=== PATIENT | male | born 1985 | race Caucasian/White ===

== ENCOUNTER 2018-09-29 17:54 | Emergency (ER) | payer SELFPAY ==
[~2018-09-29] VITALS: Ht 182.9 cm; Wt 80.0 kg
--- NOTE | 2018-09-29 18:01 | NUR ---
LATE ENTRY D/T PATIENT CARE: PT BIBA FOR OVERDOSE ON OXYCODONE. REPORT TAKEN FROM EMS. PT TOOK 30 MG OXYCODONE, STATES TIME OF INGESTION WAS IN BETWEEN [id number]. PT STATES THAT HE BELIEVES OXYCODONE INGESTED WAS IMMEDIATE RELEASE. PER EMS, PT'S FRIENDS CALLED AFTER PT COLLAPSED. PT HAD 4 RESPS / MIN ON ARRIVAL, SPO2 50%. PT WAS GIVEN 0.4 MG NARCAN, NPA PLACED AND PT VENTILATED WITH BVM PRIOR TO ARRIVAL. FSBS 120 BUTTON RIVETER PER EMS. ON ARRIVAL TO ED, PT IS A&OX4, RESPS EVEN AND UNLABORED AT RATE OF 15 PER MIN. PUPILS 3 MM, EQUAL, ROUND AND REACTIVE. PT DENIES SI OR INTENT TO HARM SELF, IS APOLOGETIC. STATES THIS WAS HIS FIRST TIME TAKING OXYCODONE, INTENT WAS TO GET HIGH. CALL LIGHT IN REACH, BED LOCKED AND IN LOWEST POSITION.
[2018-09-29 18:30] VITALS: BP 122/81
--- NOTE | 2018-09-29 18:40 | NUR ---
LATE ENTRY D/T PATIENT CARE: PT REQUESTING TO LEAVE BECAUSE HIS RIDE IS HERE AND CANNOT WAIT. PT EDUCATED REGARDING POC TO OBSERVE FOR ONE FULL HOUR, PT REFUSES TO STAY. MD ZACARIAS INFORMED. PT EDUCATED REGARDING RISK OF LEAVING PRIOR TO ONE HOUR OBS PERIOD. PT SIGNED AMA FORM. PT IS A&OX4, RESPS EVEN AND UNLABORED AT RATE 12/MIN. PUPILS 3MM, EQUAL, ROUND AND REACTIVE. PIV DC'D WITH TIP INTACT, BY PATIENT. DRESSING APPLIED BY RN. PT AMB TO DC DESK WITH STEADY GAIT. NADN AT DC.
== END 2018-09-29 18:58 | disposition left against medical advice (07) ==
LOC: ED 18:10
DX: T40.2X1A Poisoning by other opioids, accidental (unintentional), initial encounter (principal); Y92.9 Unspecified place or not applicable
CPT/HCPCS: 93005; 99283

== ENCOUNTER 2020-04-26 23:46 | Emergency (ER) | payer SELFPAY ==
[~2020-04-26] VITALS: Ht 182.9 cm; Wt 84.0 kg
--- NOTE | 2020-04-26 23:57 | NUR ---
pt kapil robert to room 1, calm and cooperative. placed in [facility], on cr monitor, and MD to see pt. states he has had some thoughts of Suicide, but no plan, and has been drinking a lot.
[2020-04-27] MEDS ORDERED: SODIUM CHLORIDE 0.9% 1,000ML IVBOLUS ONE
[2020-04-27] MEDS ORDERED: ONDANSETRON 2MG/ML, 2ML IVPush ONE
[2020-04-27 00:09] LABS: BASOPHILS % (AUTO) 1 % (0-1); EOSINOPHILS % (AUTO) 1 % (1-7); LYMPHOCYTES % (AUTO) 36 % (22-44); MEAN CORPUSCULAR HEMOGLOBIN 32.5 pg (27.5-34.5); MEAN CORPUSCULAR HGB CONC 34.3 g/dL (33.2-36.2); MEAN PLATELET VOLUME 8.6 fL (7.4-10.4); MONOCYTES % (AUTO) 8 % (2-9); NEUTROPHILS % (AUTO) 55 % (42-75); PLATELET COUNT 153 x10^3/uL (130-400); RED BLOOD COUNT 5.13 x10^6/uL (4.38-5.82); RED CELL DISTRIBUTION WIDTH 13.1 % (9.4-14.8)
[2020-04-27 00:22] LABS: ALANINE AMINOTRANSFERASE 101 U/L (12-78); ALBUMIN 3.7 g/dL (3.4-5.0); ANION GAP 11 mmol/L (5-15); CALCIUM 7.8 mg/dL (8.5-10.1); CHLORIDE 106 mmol/L (98-107); CREATININE 1.04 mg/dL (0.7-1.3)
--- NOTE | 2020-04-27 00:22 | NUR ---
pt calm. iv flushed with 10ml NS and flushed easy and no swelling or pain noted. iv ns 1000ml started to run over 1 hour. pt tolerating well. ekg done as well, and lab drawn.
[2020-04-27 00:24] LABS: ALKALINE PHOSPHATASE 75 U/L (45-117); BILIRUBIN,TOTAL 0.5 mg/dL (0.2-1.0)
[2020-04-27 00:28] LABS: MD NO
[2020-04-27] MEDS ORDERED: ONDANSETRON 2MG/ML, 2ML ONE (00:45)
--- NOTE | 2020-04-27 00:57 | NUR ---
pt wrestless, critical value back on etoh of 0.458, and md notified. pt receiving bolus ivf NS 1 liter, and zofran given IVP. calm but restless.
--- NOTE | 2020-04-27 01:12 | NUR ---
pt restless. pulled iv out of arm, and states he hurts all over. notified.
[2020-04-27 01:28] VITALS: BP 132/76
--- NOTE | 2020-04-27 01:29 | NUR ---
new iv placed left forearm. 20g, no issue, flushed easy, and 1 liter NS placed to run over 1 hour.
[2020-04-27] MEDS ORDERED: DIPHENHYDRAMINE 50 MG/ML, 1ML ONE (01:34)
--- NOTE | 2020-04-27 01:37 | NUR ---
benadryl given to help pt calm and rest. high level etoh, no benzos.
[2020-04-27] MEDS ORDERED: DIPHENHYDRAMINE 50 MG/ML, 1ML IVPush ONE (02:00)
--- NOTE | 2020-04-27 02:33 | NUR ---
Pt was found wandering around halls with blood dripping from IV site. Patient ambulatory and stable on feet.
--- NOTE | 2020-04-27 02:43 | NUR ---
unable to obtain discharge vitals, patient dressed and walking out the door before automatic typewriter inspector could obtain
== END 2020-04-27 02:44 | disposition home or self-care (01) ==
LOC: ED 04-27 00:25
DX: G31.2 Degeneration of nervous system due to alcohol (principal); F10.120 Alcohol abuse with intoxication, uncomplicated; F41.9 Anxiety disorder, unspecified; Z72.9 Problem related to lifestyle, unspecified; Y90.9 Presence of alcohol in blood, level not specified
CPT/HCPCS: 36415; 80053; 80320; 83735; 85025; 93005; 96361; 96374; 96375; 99284; J1200; J2405; J7030; G0480

== ENCOUNTER 2020-09-14 09:58 | Inpatient (IN) | payer MEDICAID, OTHER ==
[~2020-09-14] VITALS: Ht 182.9 cm; Wt 82.0 kg
--- NOTE | 2020-09-14 10:12 | NUR ---
PT BIB [facility]. PER REPORT, BROTHER WENT TO PT'S HOUSE FOR A WELFARE CHECK SINCE HE HAD NOT HEARD FROM HIM IN A WEEK. PT OPENED THE DOOR AND THEN STIFFENED UP AND COLLAPSED BACKWARD, HITTING HEAD. BROTHER STATED THAT PT DID NOT LOSE CONSCIOUSNESS AND THAT HE IMMEDIATLY TRIED TO STAND UP. BROTHER STATED THAT PT HAS HAD ALCOHOL AND PILL POPPING ISSUES IN THE PAST, BUT DID NOT SEE ANY ALCOHOL OR PILLS IN THE HOUSE. PT STATED THAT HE WAS EXPOSED TO SOMEONE WITH COVID LAST WEEK AND HAS BEEN VOMITING AND FEELING LETHARGIC FOR 1 WEEK. PT DENIES ANY RECENT PILL USE, EXCEPT A VALIUM 2 DAYS AGO AND THE WENT ON A DRINKING BINGE 4 DAYS AGO. PT DENIES ANY FEVER, COUGH, SOB, HEAD OR NECK PAIN.
[2020-09-14] MEDS ORDERED: ONDANSETRON 2MG/ML, 2ML ONE (10:51)
[2020-09-14] MEDS ORDERED: SODIUM CHLORIDE FLUSH 10ML SYR IVF ONE (11:00)
[2020-09-14] MEDS ORDERED: SODIUM CHLORIDE 0.9% 1,000ML IVBOLUS ONE ×2 (11:00→11:30)
[2020-09-14] MEDS ORDERED: ONDANSETRON 2MG/ML, 2ML IVPush ONE (11:00)
[2020-09-14 11:01] LABS: BASOPHILS % (AUTO) 1 % (0-1); EOSINOPHILS % (AUTO) 1 % (1-7); LYMPHOCYTES % (AUTO) 18 % (22-44); MEAN CORPUSCULAR HEMOGLOBIN 32.5 pg (27.5-34.5); MEAN CORPUSCULAR HGB CONC 33.9 g/dL (33.2-36.2); MEAN PLATELET VOLUME 9.4 fL (7.4-10.4); MONOCYTES % (AUTO) 14 % (2-9); NEUTROPHILS % (AUTO) 68 % (42-75); PLATELET COUNT 146 x10^3/uL (130-400); RED BLOOD COUNT 2.84 x10^6/uL (4.38-5.82); RED CELL DISTRIBUTION WIDTH 13.5 % (9.4-14.8)
--- NOTE | 2020-09-14 11:10 | NUR ---
PT RESTING IN BED COMFORTABLY. IVF INFUSING. CALL LIGHT WITHIN REACH.
[2020-09-14 11:13] LABS: ALANINE AMINOTRANSFERASE 103 U/L (12-78); ALBUMIN 2.8 g/dL (3.4-5.0); ANION GAP 8 mmol/L (5-15); CALCIUM 7.8 mg/dL (8.5-10.1); CHLORIDE 97 mmol/L (98-107); CREATININE 1.04 mg/dL (0.7-1.3)
[2020-09-14 11:15] LABS: ALKALINE PHOSPHATASE 39 U/L (45-117); BILIRUBIN,TOTAL 0.6 mg/dL (0.2-1.0); TOTAL PROTEIN 5.5 g/dL (6.4-8.2)
--- NOTE | 2020-09-14 12:15 | NUR ---
PT EDUCATED THAT STOOL SAMPLE IS NEEDED, PT UNABLE TO HAVE BM. ER MD AT BEDSIDE FOR RECTAL EXAM.
[2020-09-14] MEDS ORDERED: MAGNESIUM SULFATE 1 GM, THIAMINE 100 MG, FOLIC ACID 1 MG, MVI ADULT 10 ML in SODIUM CHL... IV ONE (13:00)
[2020-09-14] MEDS ORDERED: PANTOPRAZOLE 80 MG in SODIUM CHLORIDE 0.9% 100 ML IV SCH (13:00)
[2020-09-14] MEDS ORDERED: LORazepam 2 MG/ML, 1ML ONE (13:00)
[2020-09-14] MEDS ORDERED: LORazepam 2 MG/ML, 1ML IVPush ONE ×3 (13:00→21:00)
[2020-09-14] MEDS ORDERED: PANTOPRAZOLE 80 MG in SODIUM CHLORIDE 0.9% 50 ML IV ONE (13:00)
[2020-09-14 13:25] LABS: INTERNATIONAL NORMALIZED RATIO 1.12 (0.93-1.1)
--- NOTE | 2020-09-14 13:30 | NUR ---
REPORT CALLED TO [facility].
[2020-09-14] MEDS ORDERED: ACETAMINOPHEN 325 MG TABLET PO PRN (14:00)
[2020-09-14] MEDS ORDERED: MAGNESIUM SULFATE PMX 2GM/50ML 50 ML IV ONE (14:00)
[2020-09-14] MEDS ORDERED: ONDANSETRON 2MG/ML, 2ML IVPush PRN (14:00)
[2020-09-14 14:04] VITALS: BP 106/68
[2020-09-14] MEDS: PANTOPRAZOLE 80 MG in SODIUM CHLORIDE 0.9% 100 ML IV SCH (14:51)
[2020-09-14] MEDS: POTASSIUM CHLORIDE 20 MEQ, MAGNESIUM SULFATE 2 GM, THIAMINE 200 MG, MVI ADULT 10 ML, FO... IV SCH (14:51)
[2020-09-14] MEDS ORDERED: OCTREOTIDE 1,250 MCG in SODIUM CHLORIDE 0.9% 247.5 ML IV PRN (16:30)
[2020-09-14 20:05] VITALS: BP 108/58
[2020-09-14] MEDS: MELATONIN 5 MG TABLET PO PRN (21:10)
[2020-09-15] VITALS (7 sets, daily range): BP systolic 101–115; BP diastolic 55–71
[2020-09-15] MEDS: PANTOPRAZOLE 80 MG in SODIUM CHLORIDE 0.9% 100 ML IV SCH ×3 (00:08→21:15)
[2020-09-15 06:14] LABS: BASOPHILS % (AUTO) 1 % (0-1); EOSINOPHILS % (AUTO) 2 % (1-7); LYMPHOCYTES % (AUTO) 33 % (22-44); MEAN CORPUSCULAR HGB CONC 33.9 g/dL (33.2-36.2); MEAN PLATELET VOLUME 9.6 fL (7.4-10.4); MONOCYTES % (AUTO) 12 % (2-9); NEUTROPHILS % (AUTO) 53 % (42-75); PLATELET COUNT 137 x10^3/uL (130-400); RED BLOOD COUNT 2.11 x10^6/uL (4.38-5.82); RED CELL DISTRIBUTION WIDTH 13.9 % (9.4-14.8)
[2020-09-15 06:31] LABS: CHLORIDE 107 mmol/L (98-107)
[2020-09-15 06:50] LABS: ALANINE AMINOTRANSFERASE 74 U/L (12-78); ALBUMIN 2.4 g/dL (3.4-5.0); ALKALINE PHOSPHATASE 27 U/L (45-117); ANION GAP 5 mmol/L (5-15); BILIRUBIN,TOTAL 0.4 mg/dL (0.2-1.0); CALCIUM 7.1 mg/dL (8.5-10.1); CREATININE 0.78 mg/dL (0.7-1.3); TOTAL PROTEIN 4.6 g/dL (6.4-8.2)
[2020-09-15] MEDS ORDERED: POTASSIUM CHLORIDE 20 MEQ in SODIUM CHLORIDE 0.9% 250 ML IV ONE (07:30)
[2020-09-15] MEDS ORDERED: CHLORHEXIDINE 15 ML UDC ONE (11:07)
[2020-09-15] MEDS ORDERED: FENTANYL PF 100 MCG/2ML ONE (13:16)
[2020-09-15] MEDS ORDERED: ACETAMINOPHEN 325 MG TABLET PO PRN (13:30)
[2020-09-15] MEDS ORDERED: OXYcodone 5 MG/5 ML ORAL.SOL UDC PO PRN (13:30)
[2020-09-15] MEDS ORDERED: FENTANYL PF 100 MCG/2ML IV PRN (13:30)
[2020-09-15] MEDS ORDERED: OXYcodone 5 MG/5 ML ORAL.SOL UDC ONE (13:37)
[2020-09-15] MEDS ORDERED: ACETAMINOPHEN 650 MG/20.3 ML UDC ONE (13:37)
[2020-09-15] MEDS: POTASSIUM CHLORIDE 20 MEQ, MAGNESIUM SULFATE 2 GM, THIAMINE 200 MG, MVI ADULT 10 ML, FO... IV SCH (14:00)
[2020-09-15] MEDS: SUCRALFATE 1 GM/10 ML UDC PO SCH ×2 (16:12→21:15)
[2020-09-15] MEDS: OMEPRAZOLE 20 MG CAPSULE.DR PO SCH (16:12)
[2020-09-15] MEDS ORDERED: OCTREOTIDE 1,250 MCG in SODIUM CHLORIDE 0.9% 247.5 ML IV SCH (17:28)
[2020-09-15] MEDS: MELATONIN 5 MG TABLET PO PRN (22:20)
[2020-09-16 00:30] VITALS: BP 100/59
[2020-09-16] MEDS: OMEPRAZOLE 20 MG CAPSULE.DR PO SCH (05:22)
[2020-09-16 05:34] LABS: BASOPHILS % (AUTO) 1 % (0-1); EOSINOPHILS % (AUTO) 2 % (1-7); LYMPHOCYTES % (AUTO) 27 % (22-44); MEAN CORPUSCULAR HEMOGLOBIN 32.6 pg (27.5-34.5); MEAN CORPUSCULAR HGB CONC 34.5 g/dL (33.2-36.2); MEAN PLATELET VOLUME 9.3 fL (7.4-10.4); MONOCYTES % (AUTO) 10 % (2-9); NEUTROPHILS % (AUTO) 60 % (42-75); PLATELET COUNT 186 x10^3/uL (130-400); RED BLOOD COUNT 2.64 x10^6/uL (4.38-5.82)
[2020-09-16 05:44] LABS: ALBUMIN 2.4 g/dL (3.4-5.0); ANION GAP 5 mmol/L (5-15); CALCIUM 7.3 mg/dL (8.5-10.1); CHLORIDE 110 mmol/L (98-107)
[2020-09-16 05:50] LABS: ALANINE AMINOTRANSFERASE 65 U/L (12-78); ALKALINE PHOSPHATASE 32 U/L (45-117); BILIRUBIN,TOTAL 0.2 mg/dL (0.2-1.0); CREATININE 0.85 mg/dL (0.7-1.3); TOTAL PROTEIN 4.7 g/dL (6.4-8.2)
[2020-09-16 06:47] VITALS: BP 122/67
[2020-09-16] MEDS: PANTOPRAZOLE 80 MG in SODIUM CHLORIDE 0.9% 100 ML IV SCH (07:00)
[2020-09-16] MEDS: SUCRALFATE 1 GM/10 ML UDC PO SCH (07:00)
[2020-09-16] MEDS ORDERED: SUCR1ORA5 PO (08:22)
[2020-09-16] MEDS ORDERED: OMEP-110 PO (08:22)
== END 2020-09-16 12:10 | disposition home or self-care (01) | DRG 377 ==
LOC: ED 11:52 → EDIP 12:44 → 4EST 13:50 → DCLOUNGE 09-16 12:04
PROVIDERS: ADMIT Family Medicine; ATTEND Family Medicine
PROC: 0DB68ZX Excision of Stomach, Via Natural or Artificial Opening Endoscopic, Diagnostic (ICD-10-PCS; 2020-09-15)
PROC: 30233N1 Transfusion of Nonautologous Red Blood Cells into Peripheral Vein, Percutaneous Approach (ICD-10-PCS; 2020-09-15)
PROC: 0DB38ZX Excision of Lower Esophagus, Via Natural or Artificial Opening Endoscopic, Diagnostic (ICD-10-PCS; principal; 2020-09-15 12:45)
DX: K92.2 Gastrointestinal hemorrhage, unspecified (principal); R57.8 Other shock; K22.10 Ulcer of esophagus without bleeding; D62 Acute posthemorrhagic anemia; E87.1 Hypo-osmolality and hyponatremia; K76.0 Fatty (change of) liver, not elsewhere classified; R56.9 Unspecified convulsions; R63.0 Anorexia; Z20.822 Contact with and (suspected) exposure to COVID-19; R94.4 Abnormal results of kidney function studies; E83.42 Hypomagnesemia; E86.0 Dehydration; E86.1 Hypovolemia; F10.10 Alcohol abuse, uncomplicated; F41.9 Anxiety disorder, unspecified; Z79.899 Other long term (current) drug therapy; Z86.16 Personal history of COVID-19; Z79.891 Long term (current) use of opiate analgesic; Z79.01 Long term (current) use of anticoagulants; Z68.24 Body mass index [BMI] 24.0-24.9, adult
CPT/HCPCS: 36415; 96361; 96374; 99291; J7042; 71045; 76700; 80053; 80074; 83690; 83735; 84100; 85014; 85018; 85025; 85379; 85610; 86850; 86900; 86923; 87635; 88305; 93005; G0378; J2405; J3010; J3411; J3475; J3480; C9113; J2060; J7030; J7050; P9016